=== PATIENT | male | born 1960 | race Caucasian/White ===

== ENCOUNTER → 2018-03-04 08:25 | Outpatient (CLI) | payer MEDICAID ==
[2014-08-07 07:51] VITALS: BMI 45.5
[~2018-03-04 08:25] MED LIST: ATIVAN2 MG PO; B-12 DOTS500 MCG PO; CIALIS10 MG PO; FISH OIL 1,0001 CA1 PO; FOLIC ACID1 MG PO; LISINOPRIL10 MG PO; MILK THISTLE140 MG PO; MOBIC7.5 MG PO; NASACORT AQ N16.5 GM NASAL; NEXIUM40 MG PO; PULMICORT FLEX90 MCG INH; SINGULAIR10 MG PO; SOMA350 MG PO; VENTOLIN HFA18 GM INH; XYZAL5 MG PO; ZESTRIL10 MG PO
== END | disposition home or self-care (01) ==
LOC: D.MRI 08:25
DX: M54.5 Low back pain (principal)